=== PATIENT | male | born 2000 | race African-American/Black ===

== ENCOUNTER 2020-11-24 00:58 | Emergency (ER) | payer SELFPAY ==
[~2020-11-24] VITALS: Ht 180.3 cm; Wt 77.0 kg
[2020-11-24 01:00] VITALS: BP 123/81
[2020-11-24] MEDS ORDERED: IBUP-2029 MT (01:18)
[2020-11-24] MEDS ORDERED: AMOX-494 MT (01:18)
== END 2020-11-24 01:40 | disposition home or self-care (01) ==
LOC: ER 00:58
DX: H65.02 Acute serous otitis media, left ear (principal)
CPT/HCPCS: 99283

== ENCOUNTER 2020-11-30 11:42 | Emergency (ER) | payer SELFPAY ==
[~2020-11-30] VITALS: Ht 185.4 cm; Wt 77.0 kg
[~2020-11-30 11:42] MED LIST: AMOX-494 MT; IBUP-2029 MT
[2020-11-30] MEDS ORDERED: CEFTRIAXONE SODIUM 250 MG/VIAL IM ONE (12:15)
[2020-11-30] MEDS ORDERED: LIDOCAINE HCL 1% 20ML VIAL (Pyxis) INJ INFIL ONE ×2 (12:15→12:30)
[2020-11-30] MEDS ORDERED: DOXY100C2 MT (12:28)
[2020-11-30] MEDS ORDERED: PENICILLIN G BENZATHINE 2,400,000 UNITS/4ML SYR IM ONE (12:30)
[2020-11-30 12:46] LABS: CLARITY URINE CLEAR (CLEAR); COLOR URINE YELLOW (YELLOW); KETONES URINE TRACE (NEGATIVE); LEUKOCYTE ESTERASE URINE NEGATIVE (NEGATIVE); NITRITE URINE NEGATIVE (NEGATIVE); OCCULT BLOOD URINE NEGATIVE (NEGATIVE); PH URINE 6.5 (4.5-8.0); PROTEIN URINE NEGATIVE (NEGATIVE); SPECIFIC GRAVITY URINE 1.025 (1.005-1.030)
[2020-11-30 13:27] VITALS: BP 143/85
== END 2020-11-30 13:28 | disposition home or self-care (01) ==
LOC: ER 11:42
DX: N48.89 Other specified disorders of penis (principal); A64 Unspecified sexually transmitted disease; J45.909 Unspecified asthma, uncomplicated; Z79.899 Other long term (current) drug therapy
CPT/HCPCS: 81003; 86592; 87491; 87591; 96372; 99284; J0561; J0696; J3490

== ENCOUNTER 2022-08-08 09:59 | Emergency (ER) | payer MEDICAID ==
[~2022-08-08] VITALS: Ht 175.3 cm; Wt 81.0 kg
[~2022-08-08 09:59] MED LIST changes: +DOXY100C5 MT
[2022-08-08 10:05] VITALS: BP 136/84
[2022-08-08] MEDS ORDERED: DOXYCYCLINE HYCLATE 100MG CAPSULE PO ONE (10:30)
[2022-08-08] MEDS ORDERED: CEFTRIAXONE SODIUM 500 MG/VIAL IM ONE (10:30)
[2022-08-08 11:19] LABS: CLARITY URINE CLOUDY (CLEAR); COLOR URINE YELLOW (YELLOW); KETONES URINE NEGATIVE (NEGATIVE); LEUKOCYTE ESTERASE URINE 3+ (NEGATIVE); NITRITE URINE NEGATIVE (NEGATIVE); OCCULT BLOOD URINE NEGATIVE (NEGATIVE); PROTEIN URINE TRACE (NEGATIVE); SPECIFIC GRAVITY URINE 1.022 (1.005-1.030)
[2022-08-08] MEDS ORDERED: DOXY100C5 MT (12:08)
[2022-08-08] MEDS ORDERED: CEFP200T13 MT (12:08)
[2022-08-10 05:10] LABS: NEISSERIA GONORRHOEAE NAA Positive (Negative)
== END 2022-08-08 12:19 | disposition home or self-care (01) ==
LOC: ER 09:59
DX: R30.0 Dysuria (principal); J45.909 Unspecified asthma, uncomplicated
CPT/HCPCS: 81003; 87086; 87491; 87591; 96372; 99283; J0696